=== PATIENT | female | born 1940 | race African-American/Black ===

== ENCOUNTER 2018-10-05 19:20 | Inpatient (IN) | payer MEDICARE ==
[~2018-10-05] VITALS: Ht 156.2 cm; Wt 71.7 kg
--- NOTE | 2018-10-05 01:52 | NUR ---
The patient, CIPRIANO MONAHAN, 78 y/o, F admitted by KATLYN HURLEY MD, was given written information regarding hospital policies, unit procedures and contact persons. 10/05/18 @ 2330 Patient accompanied onto the unit by EMS personnel and nursing dormitory supervisor via [facility]. Patient transferred self from [facility] to the bed. Patient daughter Tiera at bedside on admission, contact information placed in chart. Blood pressure noted to be elevated, Dr. Hurley notified, orders obtained. Patient reports that she has been having abdominal discomfort for about a month, but did not think much of it. Patient went to the doctors office 10/05/18 because of her blood sugars have been elevated. Patient was notified by the doctor's office to come to the hospital due to abnormal labs. Patient oriented to the room, plan of care and visiting policy. Valuables were checked and left in room with patient. Will continue to monitor.
[~2018-10-05 19:20] MED LIST: GLIP5TAB10 PO; LISI2.5T PO
[2018-10-05] MEDS ORDERED: IOHEXOL 300 MG/ML 75 ML VIAL. IV ONE (19:45)
[2018-10-05] MEDS ORDERED: IV RINGERS SOLUTION,LACTATED 1,000 ML IV SCH (19:45)
[2018-10-05] MEDS ORDERED: IOHEXOL 240 MG/ML 50ML VIAL. PO ONE (19:45)
--- NOTE | 2018-10-05 19:55 | EKG ---
[address] [address] Test Date: 2018-10-05 Test Time: 19:49:24 Pat Name: CIPRIANO MONAHAN Department: Room: Gender: F Oxyacetylene Torch Operator: YOLI : 1940 Requested By: SIMBA ORTIZ Order Number: [id number] Reading MD: Aly Pandey Measurements Intervals [place] Rate: 104 P: 54 VT: 172 QRS: 14 QRSD: 78 T: 42 QT: 328 QTc: 432 Interpretive Statements SINUS TACHYCARDIA Electronically Signed On 11-03-2018 13:08:49 CDT by Aly Pandey
--- NOTE | 2018-10-05 20:02 | PHYS DOC ---
Past History Past Medical History: Diabetes, Hypertension Past Surgical History: No Surgical History, Other Additional Past Surgical Histo: colonoscopy with polypectomy Smoking: Non-smoker Alcohol Use: None Drug Use: None Adult General Chief Complaint Chief Complaint: ABDOMINAL PAIN HPI HPI Patient is a 78-year-old female presents with left upper quadrant abdominal pain that has been waxing and waning over the past month. No specific association with foods. Patient reports that the pain is currently a 5 out of 10. Nothing really seems to make the discomfort better or worse. Patient is noted that she's been feeling more tired than usual and that her blood sugar which is monitored due to her diabetes has been higher than usual. No chest pain. No radiation of the discomfort. She does have a history of diabetes and hypertension.[] Review of Systems Review of Systems Constitutional: Denies fever or chills [] Eyes: Denies change in visual acuity, redness, or eye pain [] HENT: Denies nasal congestion or sore throat [] Respiratory: Denies cough or shortness of breath [] Cardiovascular: No chest pain or palpitations[] GI: Denies nausea, vomiting, bloody stools or diarrhea [] : Denies dysuria or hematuria [] Musculoskeletal: Denies back pain or joint pain [] Integument: Denies rash or skin lesions [] Neurologic: Denies headache, focal weakness or sensory changes [] Endocrine: Denies polyuria or polydipsia [] All other systems were reviewed and found to be within normal limits, except as documented in this note. Allergies Allergies Allergies Coded Allergies Type Severity Reaction Last Updated Verified codeine Allergy Intermediate 10/11/15 No Physical Exam Physical Exam Constitutional: Well developed, well nourished, no acute distress, non-toxic appearance. [] HENT: Normocephalic, atraumatic, bilateral external ears normal, oropharynx moist, no oral exudates, nose normal. [] Eyes: PERRLA, EOMI, conjunctiva normal, no discharge. [] Neck: Normal range of motion, no tenderness, supple, no stridor. [] Cardiovascular:Heart rate regular rhythm, no murmur [] Lungs & Thorax: Bilateral breath sounds clear to auscultation [] Abdomen: Bowel sounds normal, soft, left upper quadrant tenderness, no rebound, no guarding, no rigidity, she sits up and lays back without any significant difficulty, no masses, no pulsatile masses. [] Skin: Warm, dry, no erythema, no rash. [] Back: No tenderness, no CVA tenderness. [] Extremities: No tenderness, no cyanosis, no clubbing, ROM intact, no edema. [] Neurologic: Alert and oriented X 3, normal motor function, normal sensory function, no focal deficits noted. [] Psychologic: Affect normal, judgement normal, mood normal. [] EKG EKG EKG shows a sinus tachycardia at 104 bpm. Normal axis, QTC 432 ms, no ST elevations, interpreted by me at 1950.[] Radiology/Procedures Radiology/Procedures PROCEDURE: PORTABLE CHEST 1V EXAM: Chest, single view. HISTORY: Chest pain. COMPARISON: None. FINDINGS: A frontal view of the chest is obtained. There is no infiltrate, pleural effusion or pneumothorax. The heart is normal in size. There is elevation of the right hemidiaphragm. IMPRESSION: 1. No acute pulmonary finding. 2. Mild elevation of the right hemidiaphragm. EXAM: Abdomen and pelvis CT without intravenous contrast. HISTORY: Pain and elevated lipase. TECHNIQUE: Computed tomographic images of the abdomen and pelvis were obtained without contrast. Multiplanar reformatting was performed. *One or more of the following individualized dose reduction techniques were utilized for this examination: 1. Automated exposure control. 2. Adjustment of the mA and/or kV according to patient size. 3. Use of iterative reconstruction technique. COMPARISON: None. FINDINGS: Evaluation of the lower thorax demonstrates anterior medial right middle lobe pleural parenchymal scarring. There is also bilateral infrahilar and lingular scarring or atelectasis. There is a slightly patulous distal esophagus without significant hiatal hernia. There are calcified splenic and hepatic granulomas. No hepatic or splenic lesion is seen on this noncontrast exam. The gallbladder is unremarkable. There is slight stranding surrounding the head and uncinate process of the pancreas. No focal pancreatic lesion is seen. There is a 2.7 cm right adrenal nodule, the attenuation which favors an adenoma. There may be a tiny adenoma within the left adrenal gland. There is nonspecific bilateral perinephric stranding. There is a partially exophytic lesion along the lateral mid zone cortex of the left kidney measuring approximately 2.6 cm. There is no evidence of hydronephrosis. The bladder is unremarkable. There is evidence of partial bowel resection. There is an enterocolic anastomosis within the ventral right midabdomen. There is moderate colonic stool. There is sigmoid diverticulosis without diverticulitis. There is no evidence of bowel obstruction. There is a small ventral abdominal wall hernia containing fat and portions of the small bowel wall. There is no incarceration or mechanical obstruction. There is a suspected uterine fibroid. The adnexal regions are unremarkable. There is rectal wall thickening. There is no significant surrounding perirectal stranding. There is degenerative change involving the spine. No suspicious osseous lesion is seen. IMPRESSION: 1. Mild fatty stranding surrounding the proximal pancreas. Correlate for possible pancreatitis. 2. Distal colonic diverticulosis without diverticulitis. 3. Findings consistent with partial bowel resection. There are prominent loops of bowel throughout the abdomen, without evidence of obstruction. There is also moderate stool suggesting a component of constipation. 4. Partially exophytic lesion along the lateral mid zone of the left kidney, measuring approximately 2.6 cm. This may be a cyst. The possibility of a solid lesion is not excluded. This can be better assessed with a renal sonogram. 5. Suspected uterine fibroid 6. 2.7 cm right adrenal nodule, the attenuation which favors an adenoma. There may also be a tiny adenoma within the left adrenal gland. 7. Nonspecific bilateral perinephric stranding. There is no evidence of obstructive uropathy.[] Course & Med Decision Making Course & Med Decision Making Pertinent Labs and Imaging studies reviewed. (See chart for details) ED course: Patient arrived, was placed in bed, and tolerated exam well. She was able to tolerate oral contrast with any complications. While receiving her initial IV fluids, her IV infiltrated and so was discontinued. The initial CT scan was ordered with IV contrast however due to her elevated creatinine it was changed to with only oral contrast. She tolerated the CT scan without any complications. After the return of the laboratory and imaging studies, consultation was made with her primary care physician who will be admitting her. She was admitted in improved condition. Findings were discussed with the patient and her family. All questions from the patient and her family were answered. Medical decision making: Patient appears to have pancreatitis along with renal insufficiency. This is most likely due to hydration status for her renal insufficiency. Uncertain as to the etiology of her pancreatitis. She does not elaborate any chest or cold factors consistent with gallstone pancreatitis and she has no history of alcohol use. There is no evidence of a cyst or a pseudocyst at this time, no evidence of needing surgical intervention at this time.[] Dragon Disclaimer Dragon Disclaimer This electronic medical record was generated, in whole or in part, using a voice recognition dictation system. Departure Departure: Impression: Primary Impression: Pancreatitis Additional Impressions: Renal insufficiency Diabetes mellitus Disposition: 09 ADMITTED INPATIENT Admitting Physician: Bruce Akers Condition: IMPROVED Referrals: AUGUST HAZEL-Magui (PCP) Problem Qualifiers Primary Impression: Pancreatitis Chronicity: acute Pancreatitis type: unspecified pancreatitis type Acute pancreatitis complication: no infection or necrosis Qualified Codes: K85.90 - Acute pancreatitis without necrosis or infection, unspecified Additional Impressions: Diabetes mellitus Diabetes mellitus type: type 2 Diabetes mellitus petroleum terminal plant operator insulin use: with petroleum terminal plant operator use Diabetes mellitus complication status: with unspecified complications Qualified Codes: E11.8 - Type 2 diabetes mellitus with unspecified complications; Z79.4 - oil heaterman (current) use of insulin SIMBA ORTIZ DO October 05, 2018 20:02
--- NOTE | 2018-10-05 20:07 | RAD ---
EXAM: Chest, single view. HISTORY: Chest pain. COMPARISON: None. FINDINGS: A frontal view of the chest is obtained. There is no infiltrate, pleural effusion or pneumothorax. The heart is normal in size. There is elevation of the right hemidiaphragm. IMPRESSION: 1. No acute pulmonary finding. 2. Mild elevation of the right hemidiaphragm. Electronically signed by: Divya Kaur MD (10/05/2018 8:04 PM) [facility]
[2018-10-05 20:38] LABS: BASO % 0 % (0-3); EOS # 0.1 x10^3/uL (0.0-0.7); EOS % 2 % (0-3); HEMATOCRIT 31.4 % (36.0-47.0); HEMOGLOBIN 10.8 g/dL (12.0-15.5); LYMPH # 1.3 x10^3/uL (1.0-4.8); LYMPH % 17 % (24-48); MEAN CORPUSCULAR HEMOGLOBIN 31 pg (25-35); MEAN CORPUSCULAR HGB CONC 34 g/dL (31-37); MEAN CORPUSCULAR VOLUME 91 fL (79-100); MONO # 0.6 x10^3/uL (0.0-1.1); MONO % 8 % (0-9); NEUT # 5.4 x10^3uL (1.8-7.7); NEUT % 73 % (31-73); PLATELET COUNT 302 x10^3/uL (140-400); RED BLOOD COUNT 3.47 x10^6/uL (3.50-5.40); RED CELL DISTRIBUTION WIDTH 13.5 % (11.5-14.5); WHITE BLOOD COUNT 7.5 x10^3/uL (4.0-11.0)
[2018-10-05 20:58] LABS: ALBUMIN 3.6 g/dL (3.4-5.0); ALBUMIN/GLOBULIN RATIO 0.7 (1.0-1.7); CREATININE 1.9 mg/dL (0.6-1.0); GFR 30.9; POTASSIUM 4.6 mmol/L (3.5-5.1); TOTAL BILIRUBIN 0.4 mg/dL (0.2-1.0); TOTAL PROTEIN 8.5 g/dL (6.4-8.2)
[2018-10-05 21:21] LABS: BILIRUBIN,URINE NEG (NEG); CLARITY,URINE HAZY; COLOR,URINE YELLOW; GLUCOSE,URINE NEG (NEG)
[2018-10-05 21:22] LABS: BACTERIA,URINE 0 /HPF (0-FEW); NITRITE,URINE NEG (NEG); RBC,URINE OCC /HPF (0-2); SQUAMOUS EPITHELIAL CELL,UR OCC /LPF; UROBILINOGEN,URINE 0.2 mg/dL (0.2 mg/dL)
--- NOTE | 2018-10-05 21:57 | RAD ---
EXAM: Abdomen and pelvis CT without intravenous contrast. HISTORY: Pain and elevated lipase. TECHNIQUE: Computed tomographic images of the abdomen and pelvis were obtained without contrast. Multiplanar reformatting was performed. *One or more of the following individualized dose reduction techniques were utilized for this examination: 1. Automated exposure control. 2. Adjustment of the mA and/or kV according to patient size. 3. Use of iterative reconstruction technique. COMPARISON: None. FINDINGS: Evaluation of the lower thorax demonstrates anterior medial right middle lobe pleural parenchymal scarring. There is also bilateral infrahilar and lingular scarring or atelectasis. There is a slightly patulous distal esophagus without significant hiatal hernia. There are calcified splenic and hepatic granulomas. No hepatic or splenic lesion is seen on this noncontrast exam. The gallbladder is unremarkable. There is slight stranding surrounding the head and uncinate process of the pancreas. No focal pancreatic lesion is seen. There is a 2.7 cm right adrenal nodule, the attenuation which favors an adenoma. There may be a tiny adenoma within the left adrenal gland. There is nonspecific bilateral perinephric stranding. There is a partially exophytic lesion along the lateral mid zone cortex of the left kidney measuring approximately 2.6 cm. There is no evidence of hydronephrosis. The bladder is unremarkable. There is evidence of partial bowel resection. There is an enterocolic anastomosis within the ventral right midabdomen. There is moderate colonic stool. There is sigmoid diverticulosis without diverticulitis. There is no evidence of bowel obstruction. There is a small ventral abdominal wall hernia containing fat and portions of the small bowel wall. There is no incarceration or mechanical obstruction. There is a suspected uterine fibroid. The adnexal regions are unremarkable. There is rectal wall thickening. There is no significant surrounding perirectal stranding. There is degenerative change involving the spine. No suspicious osseous lesion is seen. IMPRESSION: 1. Mild fatty stranding surrounding the proximal pancreas. Correlate for possible pancreatitis. 2. Distal colonic diverticulosis without diverticulitis. 3. Findings consistent with partial bowel resection. There are prominent loops of bowel throughout the abdomen, without evidence of obstruction. There is also moderate stool suggesting a component of constipation. 4. Partially exophytic lesion along the lateral mid zone of the left kidney, measuring approximately 2.6 cm. This may be a cyst. The possibility of a solid lesion is not excluded. This can be better assessed with a renal sonogram. 5. Suspected uterine fibroid 6. 2.7 cm right adrenal nodule, the attenuation which favors an adenoma. There may also be a tiny adenoma within the left adrenal gland. 7. Nonspecific bilateral perinephric stranding. There is no evidence of obstructive uropathy. Electronically signed by: Divya Kaur MD (10/05/2018 9:54 PM) [facility]
[2018-10-05] MEDS: IV NORMAL SALINE 1,000ML 1,000 ML IV SCH ×2 (22:10→23:56)
[2018-10-05] MEDS ORDERED: ONDANSETRON PF 4 MG/2 ML VIAL. IV PRN (22:15)
[2018-10-05] MEDS ORDERED: ACETAMINOPHEN 325 MG TABLET PO PRN (22:15)
[2018-10-05 23:25] VITALS: BP 189/107
[2018-10-05] MEDS ORDERED: INSU100I30 SQ (23:59)
[2018-10-05] MEDS ORDERED: INSU100I17 SQ (23:59)
[2018-10-05] MEDS ORDERED: GLIP-26 PO (23:59)
[2018-10-05] MEDS ORDERED: AMIT25TA PO (23:59)
[2018-10-05] MEDS ORDERED: LISI40TA PO (23:59)
[2018-10-05] MEDS ORDERED: NITR100C62 PO (23:59)
[2018-10-06] VITALS (9 sets, daily range): BP systolic 134–184; BP diastolic 68–92
[2018-10-06] MEDS ORDERED: cloNIDine HCL 0.1 MG TABLET PO ONE (01:00)
[2018-10-06 06:45] LABS: BASO % 1 % (0-3); EOS # 0.2 x10^3/uL (0.0-0.7); EOS % 3 % (0-3); HEMATOCRIT 27.4 % (36.0-47.0); HEMOGLOBIN 9.4 g/dL (12.0-15.5); LYMPH # 1.5 x10^3/uL (1.0-4.8); LYMPH % 26 % (24-48); MEAN CORPUSCULAR HEMOGLOBIN 31 pg (25-35); MEAN CORPUSCULAR HGB CONC 34 g/dL (31-37); MEAN CORPUSCULAR VOLUME 91 fL (79-100); MONO # 0.4 x10^3/uL (0.0-1.1); MONO % 7 % (0-9); NEUT # 3.8 x10^3uL (1.8-7.7); NEUT % 64 % (31-73); PLATELET COUNT 275 x10^3/uL (140-400); RED BLOOD COUNT 3.02 x10^6/uL (3.50-5.40); RED CELL DISTRIBUTION WIDTH 13.3 % (11.5-14.5); WHITE BLOOD COUNT 5.9 x10^3/uL (4.0-11.0)
[2018-10-06 06:56] LABS: ALBUMIN 2.9 g/dL (3.4-5.0); ALBUMIN/GLOBULIN RATIO 0.7 (1.0-1.7); CREATININE 1.6 mg/dL (0.6-1.0); GFR 37.7; POTASSIUM 4.2 mmol/L (3.5-5.1); TOTAL BILIRUBIN 0.6 mg/dL (0.2-1.0); TOTAL PROTEIN 7.1 g/dL (6.4-8.2)
[2018-10-06] MEDS: IV NORMAL SALINE 1,000ML 1,000 ML IV SCH ×3 (07:11→23:30)
[2018-10-06] MEDS ORDERED: INSULIN ASPART 5 UNIT SQ SCH (12:00)
--- NOTE | 2018-10-06 16:50 | RAD ---
Abdominal ultrasound, 10/06/2018: HISTORY: Pancreatitis, abnormal lipase level The gallbladder is within normal limits in size. There is no sonographic evidence of cholelithiasis. The gallbladder parisi are not thickened. The common hepatic duct measures 5-6 mm which is at the upper limits of normal. No intrahepatic bile duct dilatation or hepatic mass is seen. The visualized portion of the pancreatic body is unremarkable. Other portions of the pancreas were obscured by overlying bowel. The spleen is poorly visualized but appears to be of normal size. A 1.5 cm hypoechoic left renal nodule is probably a cyst. The kidneys are otherwise unremarkable without evidence of obstruction. The abdominal aorta and inferior vena cava show no abnormality. No free fluid is evident in the abdomen. IMPRESSION: 1. The limited views of the pancreas show no abnormality. 3. The gallbladder is unremarkable. 4. The common hepatic duct is at the upper limits of normal in size. 5. Probable small left renal cyst. Electronically signed by: Francisco J Nicole MD (10/06/2018 4:47 PM) [facility]
[2018-10-06] MEDS: LISINOPRIL 20 MG TABLET PO SCH (16:53)
[2018-10-06] MEDS ORDERED: INSULIN DEGLUDEC 10 UNIT SQ SCH (21:00)
[2018-10-06 22:07] LABS: HEMOGLOBIN A1C 10.2 % (4.8-5.6)
[2018-10-07] VITALS (8 sets, daily range): BP systolic 132–192; BP diastolic 67–103
[2018-10-07] MEDS: IV NORMAL SALINE 1,000ML 1,000 ML IV SCH ×3 (05:44→19:05)
[2018-10-07 06:27] LABS: BASO % 1 % (0-3); EOS # 0.2 x10^3/uL (0.0-0.7); EOS % 3 % (0-3); HEMATOCRIT 27.2 % (36.0-47.0); HEMOGLOBIN 9.1 g/dL (12.0-15.5); LYMPH # 1.4 x10^3/uL (1.0-4.8); LYMPH % 31 % (24-48); MEAN CORPUSCULAR HEMOGLOBIN 31 pg (25-35); MEAN CORPUSCULAR HGB CONC 34 g/dL (31-37); MEAN CORPUSCULAR VOLUME 91 fL (79-100); MONO # 0.4 x10^3/uL (0.0-1.1); MONO % 8 % (0-9); NEUT # 2.6 x10^3uL (1.8-7.7); NEUT % 57 % (31-73); PLATELET COUNT 252 x10^3/uL (140-400); RED BLOOD COUNT 2.99 x10^6/uL (3.50-5.40); RED CELL DISTRIBUTION WIDTH 13.5 % (11.5-14.5); WHITE BLOOD COUNT 4.6 x10^3/uL (4.0-11.0)
[2018-10-07 06:32] LABS: CALCIUM 8.3 mg/dL (8.5-10.1); CREATININE 1.3 mg/dL (0.6-1.0); GFR 47.9; POTASSIUM 4.7 mmol/L (3.5-5.1)
[2018-10-07] MEDS: LISINOPRIL 20 MG TABLET PO SCH (08:28)
[2018-10-07] MEDS: POLYVINYL ALCOHOL 1.4% OPHTH SOLUTION 15ML BOTTLE. OU PRN ×2 (09:07→14:32)
--- NOTE | 2018-10-07 09:39 | NUR ---
NURSING NOTE EYE PT STATES HER EYE WAS IRRITATING HER, STATES SHE DOESNT THINK SHE GOT ANYTHING IT IN, PT LEFT EYE IS REDDENED. ARTIFICIAL TEARS ORDERED. WILL CONTINUE TO MONITOR. STEVEN JAMES.
--- NOTE | 2018-10-07 09:42 | NUR ---
NURSING NOTE ELEVATED DDIMER PT DDIMER ELEVATED 2.54. CALLED DR HURLEY, CTANGIO ORDER OBTAINED. STEVEN JAMES.
[2018-10-07] MEDS ORDERED: IOHEXOL 350 MG/ML 100 ML VIAL. IV ONE (10:10)
[2018-10-07] MEDS ORDERED: IOHEXOL 300 MG/ML 75 ML VIAL. IV ONE (10:30)
[2018-10-07] MEDS: cloNIDine HCL 0.1 MG TABLET PO PRN ×2 (10:56→20:46)
--- NOTE | 2018-10-07 11:02 | NUR ---
NURSING NOTE ELEVATED BLOOD PRESSURE PT BLOOD PRESSURE IS 175/101. PRN CATAPRES 0.1MG GIVEN AT 1056. WILL CONTINUE TO MONITOR. STEVEN JAMES.
--- NOTE | 2018-10-07 11:37 | RAD ---
Examination: CT ANGIOGRAPHY CHEST History: Elevated d-dimer Comparison/Correlation: CT abdomen and pelvis without contrast 10/05/2018 Findings: Axial images of the chest were obtained following IV contrast according to pulmonary arteriography protocol. Sagittal and coronal reformatted images were provided. MIP images provided. Excellent pulmonary arterial opacification with contrast is noted. Excellent opacification of the thoracic aorta also is seen. Pulmonary arterial vasculature is normal with no thromboembolic disease. Thoracic aorta is unremarkable for the patient's age. No aneurysm or evidence of dissection although motion may slightly limit evaluation at the aortic root. There is a small left pleural effusion. Minimal linear atelectasis at the lateral right lung base is present. No focal infiltrate. No suspicious pulmonary nodule. No enlarged thoracic lymph nodes. Oral contrast is noted within the colon. Low-attenuation adrenal nodules which probably represent benign adenomas are seen. Impression: No pulmonary arterial thromboembolic disease. Small left pleural effusion. No focal infiltrate. PQRS Compliance Statement: One or more of the following individualized dose reduction techniques were utilized for this examination: 1. Automated exposure control 2. Adjustment of the mA and/or kV according to patient size 3. Use of iterative reconstruction technique Electronically signed by: Cayden Talbot MD (10/07/2018 11:34 AM) [id number]
[2018-10-07 17:08] LABS: TOTAL SERUM CREATININE 1.41 mg/dL (0.57-1.00); TOTAL URINE CREATININE 39.6 mg/dL (Not Estab.)
[2018-10-07] MEDS ORDERED: ACETAMINOPHEN 325 MG TABLET PO ONE (17:45)
[2018-10-07] MEDS ORDERED: ACETAMINOPHEN 325 MG TABLET PO PRN (18:00)
--- NOTE | 2018-10-07 22:11 | PN ---
DATE: 10/07/2018 SUBJECTIVE: The patient in with pancreatitis. The patient had abdominal ultrasound yesterday which showed some slight enlargement of the common bile duct. Other than that unremarkable. The patient still is having problems with diffuse abdominal discomfort, not able to take in much weight except for fluids. OBJECTIVE: VITAL SIGNS: Blood pressure 138/67, respiration rate 16, pulse 80, afebrile. GENERAL: The patient is alert and oriented. LUNGS: Clear. CARDIOVASCULAR: Regular sinus rhythm. ABDOMEN: Soft, very diffuse tenderness, improved. Her lipase is down to 1000 and we will continue to monitor her accordingly on that situation as we progress. Otherwise, we will continue to be monitored carefully and make further evaluation on her. IMPRESSION: Acute pancreatitis. KATLYN HURLEY MD DR: MONTY/karlene JOB#: [id number] / [id number]
[2018-10-08] MEDS: IV NORMAL SALINE 1,000ML 1,000 ML IV SCH ×4 (03:52→19:43)
[2018-10-08 05:53] VITALS: BP 153/75
[2018-10-08 07:12] LABS: CALCIUM 7.9 mg/dL (8.5-10.1); CREATININE 1.2 mg/dL (0.6-1.0); GFR 52.6; POTASSIUM 4.3 mmol/L (3.5-5.1)
[2018-10-08] MEDS: LISINOPRIL 20 MG TABLET PO SCH (08:43)
[2018-10-08] MEDS ORDERED: DEXTROSE 50% 25 GM / 50ML DISP.SYRIN. IV PRN (12:15)
[2018-10-08 12:17] VITALS: BP 188/78
[2018-10-08] MEDS: LIPASE/PROTEAS/AMYLAS 10/32/42 CAPSULE.DR. PO SCH ×2 (12:21→17:00)
[2018-10-08] MEDS: cloNIDine HCL 0.1 MG TABLET PO PRN (12:22)
--- NOTE | 2018-10-08 14:16 | NUR ---
Pt is alert and oriented x4. Denies abdominal pain, discomfort, nausea or vomiting. Advancing diet as tolerated. Had long discussion with patient and daughter about patients labs and plan of cares. BP elevated, PRN catapress given. IVF stopped as patient is tolerating oral intake. WCTM.
[2018-10-08 14:23] VITALS: BP 135/69
[2018-10-08 15:54] VITALS: BP 136/66
[2018-10-08] MEDS: INSULIN LISPRO 300 UNITS/3 ML INSULN.PEN. SQ SCH (17:00)
[2018-10-08 19:20] VITALS: BP 128/72
--- NOTE | 2018-10-09 00:42 | PN ---
DATE: 10/08/2018 SUBJECTIVE: The patient is a 78-year-old female with a history of acute pancreatitis. The patient is making good progress; however, lipase level is still elevated, still having some abdominal discomfort, difficulty eating. OBJECTIVE: VITAL SIGNS: Blood pressure also at night, spikes up to about 190s/140 down to 153/75, respiratory rate 20, pulse 78, afebrile. GENERAL: The patient is alert and oriented. LUNGS: Clear. CARDIOVASCULAR: Regular sinus rhythm. ABDOMEN: Soft, diffuse tenderness, but markedly improved. No guarding. No rebounding, positive bowel sounds. No hepatosplenomegaly. IMPRESSION: Acute pancreatitis, hypertensive urgency, and anemia of chronic disease. KATLYN HURLEY MD DR: MONTY/karlene JOB#: [id number] / [id number]
[2018-10-09 05:35] VITALS: BP 155/75
--- NOTE | 2018-10-09 05:42 | NUR ---
Patient had a good shift, complaints of no pain or discomfort noted. Patient rested all night. Call light within reach. Will continue to monitor.
[2018-10-09] MEDS: INSULIN LISPRO 300 UNITS/3 ML INSULN.PEN. SQ SCH (07:55)
[2018-10-09] MEDS: LIPASE/PROTEAS/AMYLAS 10/32/42 CAPSULE.DR. PO SCH (07:57)
[2018-10-09] MEDS: LISINOPRIL 20 MG TABLET PO SCH (07:58)
[2018-10-09 11:20] VITALS: BP 161/69
[2018-10-09] MEDS ORDERED: CLON0.1T12 PO (11:22)
[2018-10-09] MEDS ORDERED: LIPA1CAP12 PO (11:22)
--- NOTE | 2018-10-09 12:12 | NUR ---
NURSING NOTE DISCHARGE PT DISCHARGED TO HOME VIA AMBULATION ACCOMPANIED BY FAMILY AT 1212. WRITTEN AND VERBAL DISCHARGE INSTRUCTIONS GIVEN TO PT. WRITTEN SCRIPT GIVEN TO PT. STEVEN JAMES.
--- NOTE | 2018-10-09 17:43 | DS ---
DATE OF DISCHARGE: 10/09/2018 HOSPITAL COURSE: A 78-year-old female who came in with abdominal pain. The patient's lipase was in the range of 3000 when she initially came in. GFR was slightly low at 41, creatinine was as high as 1.9 and came down to 1.2. She was also slightly anemic with a hemoglobin in the 9/27 range. She did have an elevated D-dimer. However, her CTA was negative. The patient was placed on clear liquids and pain medication as needed. Started her back on a soft diet seemed to tolerate that well. Her lipase went down as low as 650, but the patient was feeling much better. Her blood sugars were monitored as well as a result of this, the patient was discharged home per her request and will be followed up as an outpatient. We will follow up on her pancreatitis as well as her anemia and her blood sugars. IMAGING: CTA is noted was negative. The ultrasound report demonstrated unremarkable findings of the pancreas. The abdominal CTA showed evidence of an old partial bowel resection, mild fatty stranding around the pancreas with pancreatitis, partial small bowel resection and possible constipation. She will need a renal ultrasound as an outpatient. Uterine fibroid, which needs to be followed up. IMPRESSION: Acute pancreatitis, possible mass of the left kidney, anemia, chronic renal tubular stasis. The patient will be discharged with type 2 diabetes. The patient will be followed up as an outpatient and make further evaluation on her as indicated. KATLYN HURLEY MD DR: MONTY/karlene JOB#: [id number] / [id number]
--- NOTE | 2018-10-09 22:17 | DS ---
DATE OF DISCHARGE: 10/09/2018 HOSPITAL COURSE: The patient was admitted with abdominal pain, primarily in her left upper quadrant area. Her lipase was in the neighborhood of approximately 3000 to begin with. DICTATION ENDS HERE KATLYN HURLEY MD DR: MONTY/karlene JOB#: [id number] / [id number]
== END 2018-10-09 12:13 | disposition home or self-care (01) | DRG 438 ==
LOC: ER 19:20 → 1 SOUTH 22:03
PROVIDERS: ADMIT Family Medicine; ATTEND Family Medicine
DX: K85.90 Acute pancreatitis without necrosis or infection, unspecified (principal); N17.0 Acute kidney failure with tubular necrosis; I16.0 Hypertensive urgency; D63.8 Anemia in other chronic diseases classified elsewhere; N25.9 Disorder resulting from impaired renal tubular function, unspecified; I10 Essential (primary) hypertension; K57.30 Diverticulosis of large intestine without perforation or abscess without bleeding; E61.1 Iron deficiency; R87.4 Abnormal immunological findings in specimens from female genital organs; E11.65 Type 2 diabetes mellitus with hyperglycemia; R63.3 Feeding difficulties; Z79.4 Long term (current) use of insulin; Z88.8 Allergy status to other drugs, medicaments and biological substances; E86.0 Dehydration
CPT/HCPCS: 36415; 71045; 71275; 74176; 76700; 80048; 80053; 81001; 82575; 82947; 83036; 83540; 83550; 83690; 83880; 84484; 85025; 85379; 85610; 87086; 93005; 96360; J1815; J7120; Q9966; 99285-25; J7030